=== PATIENT | male | born 1995 ===

== ENCOUNTER 2022-11-14 20:08 | Emergency (ER) | payer SELFPAY ==
--- NOTE | ~2022-11-14 | XR_ITS ---
EXAMINATION: XR CHEST 2 VIEWS CLINICAL INFORMATION: Shortness of breath and wheezing. COMPARISON: None. TECHNIQUE: Frontal and lateral views of the chest were obtained. FINDINGS: The heart, great vessels, pulmonary vasculature and mediastinum are normal. The lungs show no focal infiltrate, effusion or pneumothorax. There is a full inspiratory effort. There is no acute osseous abnormality. XR/XR chest 2V IMPRESSION: No active cardiopulmonary disease.
[2022-11-14 20:20] VITALS: BP 139/96; PULSE 125; RESP 18; TEMP 37.1; O2SAT 94; BMI 28.1
--- NOTE | 2022-11-14 20:20 | ED_ITS ---
HPI - SOB/Dyspnea General Chief Complaint: Dyspnea <MANUEL Henderson - Last Filed: 11/14/22 20:24> Stated Complaint: trouble breathing, wheezing <MANUEL Henderson - Last Filed: 11/14/22 20:24> Time Seen by Provider: 11/14/22 23:14 <MANUEL Henderson - Last Filed: 11/14/22 20:24> Source: patient, RN notes reviewed and old records reviewed <Hudson Cano - Last Filed: 11/14/22 23:25> Mode of arrival: ambulatory <Hudson Cano - Last Filed: 11/14/22 23:25> Limitations: no limitations <Hudson Cano - Last Filed: 11/14/22 23:25> History of Present Illness HPI Narrative: 27-year-old male with no significant past medical history presents for evaluation of shortness of breath. patient reports since moving to the area from [place] every spring he has allergies with congestion and sometimes shortness of breath he denies any known history of asthma but he reports he has been wheezing for the last week denies any fevers, chills he has not been taking any medications to help alleviate his symptoms no other complaints or concerns at this time <Hudson Cano - Last Filed: 11/14/22 23:25> Related Data Home Medications: Previous Rx's Medication Instructions Recorded albuterol sulfate 90 mcg/actuation 2 puff inhalation Q4-6H PRN 11/14/22 aerosol inhaler shortness of breath or wheezing #6.7 grams fexofenadine-pseudoephedrine ER 1 tab PO QAM PRN allergy symptoms 11/14/22 180 mg-240 mg tablet,ext.release #20 tabs 24 hr (Irma-D 24 Hour) prednisone 20 mg tablet 40 mg PO DAILY #10 tabs 11/14/22 <MANUEL Henderson - Last Filed: 11/14/22 20:24> Allergies/Adverse Reactions: Allergies Allergy/AdvReac Type Severity Reaction Status Date / Time No Known Allergies Allergy Verified 11/14/22 20:20 <MANUEL Henderson - Last Filed: 11/14/22 20:24> Review of Systems Constitutional: Constitutional: Denies chills and Denies fever(s) <Hudson Angely - Last Filed: 11/14/22 23:25> Eyes: Eyes: Denies blurry vision and Reports itchy eyes <Hudson O'Henderson - Last Filed: 11/14/22 23:25> ENT: Reports nasal congestion, Reports nasal discharge, Reports sinus pressure and Denies sore throat <Hudson O - Last Filed: 11/14/22 23:25> Cardiovascular: Cardiovascular: Denies chest pain and Reports dyspnea <Hudson Juan - Last Filed: 11/14/22 23:25> Respiratory: Respiratory: Reports cough, Reports dyspnea and Reports wheezing <Hudson O - Last Filed: 11/14/22 23:25> Gastrointestinal: Gastrointestinal: Denies abdominal pain, Denies nausea and Denies vomiting <Hudson O - Last Filed: 11/14/22 23:25> Allergic/Immunologic: Allergic/Immunologic: Reports itchy eyes and Reports wheezing <Hudson O'Henderson - Last Filed: 11/14/22 23:25> [facility] Social History Social History: Social History Advance Directives: No Advance Directives Information Provided: No <MANUEL Henderson - Last Filed: 11/14/22 20:24> Physical Exam Vital Signs: Vital Signs: Last Vital Signs Temp 98.8 F 11/14/22 20:20 Pulse 124 H 11/14/22 22:12 Resp 11/14/22 21:45 BP 139/96 H 11/14/22 20:20 Pulse Ox 96 11/14/22 22:12 O2 Del Method Room Air 11/14/22 22:12 BMI result Body Mass Index 28.1 <MANUEL Henderson - Last Filed: 11/14/22 20:24> Vital Signs: Last Vital Signs Temp 98.8 F 11/14/22 20:20 Pulse 124 H 11/14/22 22:12 Resp 11/14/22 21:45 BP 139/96 H 11/14/22 20:20 Pulse Ox 96 11/14/22 22:12 O2 Del Method Room Air 11/14/22 22:12 BMI result Body Mass Index 28.1 <Hudson Cano - Last Filed: 11/14/22 23:25> Const: General: healthy appearing, comfortable, no acute distress, alert and awake <Hudson OHenderson - Last Filed: 11/14/22 23:25> Nutritional Appearance: well nourished <Hudson Last Filed: 11/14/22 23:25> Orientation/consciousness: patient oriented x3 <Hudson O Last Filed: 11/14/22 23:25> HEENT: Head: Yes normocephalic and Yes atraumatic < - Last Filed: 11/14/22 23:25> Throat: Yes posterior oropharynx normal < - Last Filed: 11/14/22 23:25> Eyes: Eyelids: Yes eyelids normal < Last Filed: 11/14/22 23:25> Conjunctivae: conjunctivae normal <Hudson - Last Filed: 11/14/22 23:25> Sclerae: sclerae normal < - Last Filed: 11/14/22 23:25> Corneas: corneas normal < - Last Filed: 11/14/22 23:25> Pupils: Equal, round and reactive pupils present <Hudson - Last Filed: 11/14/22 23:25> EOM: EOMs intact bilaterally <Hudson Last Filed: 11/14/22 23:25> Resp: Effort & Inspection: normal respiratory effort, able to speak in complete sentences, no audible wheezes and not labored <Hudson O - Last Filed: 11/14/22 23:25> Auscultation: clear to auscultation bilaterally < Last File d: 11/14/22 23:25> Cardio: Rate: regular rate < - Last Filed: 11/14/22 23:25> Rhythm: regular rhythm <Hudson Last Filed: 11/14/22 23:25> Skin: General skin exam: no rashes or lesions noted and elasticity normal < - Last Filed: 05/10/23 23:25> Neuro: General: patient oriented x3 <Hudson Cano - Last Filed: 11/14/22 23:25> Cranial nerves: Yes Equal, round and reactive pupils present and Yes Bilaterally intact EOM present <Hudson Cano - Last Filed: 11/14/22 23:25> Cognition (Neuro): normal cognition <Hudson Cano - Last Filed: 11/14/22 23:25> Course Course Course Narrative: RME - 27 yo male with history of seasonal allergies presents to the ER for evaluation of SOB and wheezing for the last 1 week. Denies history of known asthma but states he has these symptoms every Spring. Speaking in complete sentences in triage, no resp distress. SPO2 93% with diffuse expiratory/inspiratory wheezing on exam. Plan: CXR, albuterol, prednisone <MANUEL Henderson - Last Filed: 11/14/22 20:24> Medications Administered Discontinued Medications Generic Name Dose Route Start Last Admin Trade Name Freq PRN Reason Stop Dose Admin Albuterol Sulfate 5 mg 11/14/22 20:22 11/14/22 21:43 Albuterol Sulfate (0.083%) 2.5 Mg/3 Ml Vial.Neb INHALE 11/14/22 20:23 5 mg ONCE ONE Administration Prednisone 50 mg 11/14/22 20:22 11/14/22 21:38 Prednisone 10 Mg Tablet PO 11/14/22 20:23 50 mg ONCE ONE Administration <MANUEL Henderson - Last Filed: 11/14/22 20:24> Medications Administered Discontinued Medications Generic Name Dose Route Start Last Admin Trade Name Freq PRN Reason Stop Dose Admin Albuterol Sulfate 5 mg 11/14/22 20:22 11/14/22 21:43 Albuterol Sulfate (0.083%) 2.5 Mg/3 Ml Vial.Neb INHALE 11/14/22 20:23 5 mg ONCE ONE Administration Prednisone 50 mg 11/14/22 20:22 11/14/22 21:38 Prednisone 10 Mg Tablet PO 11/14/22 20:23 50 mg ONCE ONE Administration <uHdson Cano - Last Filed: 11/14/22 23:25> Medical Decision Making Medical Decision Making MDM Narrative: clinically the patient likely has an allergy induced asthma. He was given a breathing treatment and prednisone when seen by the triage provider. At time my evaluation he is resting comfortably with lung sounds clear to auscultation. Will discharge the patient with allergy medication, prednisone and albuterol <Hudson Cano - Last Filed: 11/14/22 23:25> Differential Diagnosis seasonal allergies Asthma Allergy induced asthma Viral syndrome Bronchitis Sinusitis <Hudson Cano - Last Filed: 11/14/22 23:25> Independent Interpretation I performed an independent interpretation of an: Plain X-Ray ( no focal infiltrates) <Hudson Cano - Last Filed: 11/14/22 23:25> Discharge Plan Discharge Clinical Impression: Allergy-induced asthma <MANUEL Henderson - Last Filed: 11/14/22 20:24> Patient Disposition: Home, Self-Care <MANUEL Henderson - Last Filed: 11/14/22 20:24> Instructions: Asthma (ED) <MANUEL Henderson - Last Filed: 11/14/22 20:24> Additional Instructions: you likely have asthma related to seasonal allergies. you should start taking a daily allergy medication in the springtime when you experience your symptoms take prednisone 40 mg daily for the next 5 days use the albuterol inhaler for chest tightness and wheezing/shortness of breath <MANUEL Henderson - Last Filed: 11/14/22 20:24> Prescriptions: New prednisone 20 mg tablet 40 mg PO DAILY Qty: 10 0RF albuterol sulfate 90 mcg/actuation HFA aerosol inhaler 2 puff inhalation Q4-6H PRN (Reason: shortness of breath or wheezing) Qty: 6.7 0RF fexofenadine-pseudoephedrine [Irma-D 24 Hour] 180-240 mg tablet extended release 24 hr 1 tab PO QAM PRN (Reason: allergy symptoms) Qty: 20 0RF <MANUEL Henderson - Last Filed: 11/14/22 20:24>
[2022-11-14] MEDS: predniSONE 10 MG TABLET 50 MG PO (21:38)
[2022-11-14] MEDS: Albuterol Sulfate (0.083%) 2.5 MG/3 ML VIAL.NEB 5 MG INHALE (21:43)
[2022-11-14 21:45] VITALS: PULSE 87; RESP 20; O2SAT 98
[2022-11-14 22:12] VITALS: PULSE 124; O2SAT 96
--- NOTE | 2022-11-14 22:58 | PC.NURSE ---
pt medicated per MAR- awaiting ED provider
--- NOTE | 2022-11-14 23:33 | PC.NURSE ---
This RN took over care at 11:11pm, pt a&o, no sign of respiratory distress , pt able to speak in full sentences, Reviewed discharge instruction with pt, pt verbalized understanding.
== END 2022-11-14 23:35 | disposition home or self-care (01) ==
PROVIDERS: Emergency Provider Internal Medicine
DX: J45.909 Unspecified asthma, uncomplicated (principal)
CPT/HCPCS: 71046; 94640; 99284

== ENCOUNTER 2023-04-24 18:09 | Inpatient (IN) | payer MEDICAID, OTHER, SELFPAY ==
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
[2023-04-24] MEDS: Ondansetron ODT 4 MG TAB.RAPDIS TRANSLINGU (18:38)
[2023-04-24 18:39] VITALS: BP 137/80; PULSE 120; RESP 18; TEMP 36.1; O2SAT 95; BMI 30.9
[2023-04-24] MEDS: OLANZapine ODT 10 MG TAB.RAPDIS TRANSLINGU (18:39)
[2023-04-24] MEDS: LORazepam 1 MG TABLET 2 MG PO (18:39)
[2023-04-24 18:46] LABS: Appearance Urine Clear; Color Urine Dark Yellow; Glucose Urine UA Negative (Negative); Leukocyte Esterase Urine Small (1+) (Negative); Nitrite Urine Negative (Negative); Specific Gravity - Urine >= 1.030 (1.005-1.025); UMIC TRIGGER UACC YES; Urine Blood Negative (Negative); Urine Ketones 80 mg/dL (Negative); Urine Protein 100 (2+) mg/dL (Neg-Trace)
[2023-04-24 18:51] LABS: Amphetamine Screen Urine Not Detected (Not Detect); Barbiturates, Urine Not Detected (Not Detect); Benzodiazepines Screen Urine Not Detected (Not Detect); Cannabinoid Screen Urine POSITIVE (Not Detect); Cocaine Screen Urine Not Detected (Not Detect); Fentanyl, urine Not Detected (Not Detect); Opiate Screen Urine Not Detected (Not Detect); Phencyclidine Screen Urine Not Detected (Not Detect)
[2023-04-24 18:55] LABS: Bacteria Urine None Seen (None Seen); RBC Urine 0-2 /HPF (0-2); UACC Culture Trigger YES
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
[2023-04-24 19:23] LABS: MANUAL DIFF FLAG NO
[2023-04-24 19:30] LABS: Basophils Percent Auto 0.4 % (0-2); Eosinophils Absolute Auto 0.1 X10*3/uL (0.0-0.4); Eosinophils Percent Auto 0.8 % (0-4); Hematocrit 50.1 % (42.0-52.0); Hemoglobin 17.5 g/dl (14.0-18.0); Imm Gran Abs Auto 0.03 X10*3/uL (0.00-0.03); Imm Gran Pct Auto 0.4 % (0.0-0.4); Lymphocytes Absolute Auto 1.6 X10*3/uL (1.2-4.9); Lymphocytes Percent Auto 20.2 % (20-40); Mean Corpuscular HGB Conc 34.9 g/dl (31.0-36.0); Mean Corpuscular Hemoglobin 28.6 pg (27.0-33.0); Mean Platelet Volume 9.1 fL (9.4-12.4); Monocytes Absolute Auto 0.4 X10*3/uL (0.1-1.2); Monocytes Percent Auto 4.7 % (2-11); Neutrophils Absolute Auto 5.8 x10*3/uL (2.0-8.3); Neutrophils Percent Auto 73.5 % (45-73); Platelet Count 359 X10*3/uL (160-400); Red Blood Count 6.11 X10*6/uL (4.60-5.80); Red Cell Distribution Width 14.2 % (11.0-16.0); White Blood Count 7.8 X10*3/uL (4.8-10.8)
[2023-04-24 19:40] LABS: Anion Gap 22 (12-20); Blood Urea Nitrogen 16 mg/dL (9-16); Calcium 10.3 mg/dL (8.4-10.2); Carbon Dioxide 17 mmol/L (22-29); Chloride 104 mmol/L (96-108); Creatinine Clr Calc Pharmacy 71.9; Estimated Glomerular Filt Rate 57; Ethanol < 10 mg/dL; Glucose Random 151 mg/dL (60-115); Potassium 3.9 mmol/L (3.3-5.1); Sodium 139 mmol/L (135-145)
[2023-04-24 20:19] LABS: COVID-19 Test Positive (Negative); IDNOW Serial# 9DB6401D
--- NOTE | 2023-04-24 22:26 | PC.NURSE ---
Patient is in bed appears sleeping, no distress observed/reported, behavior non concerning, coherent, patient was assessed in the community with disposition section 12 inpatient bed search, labs completed/resulted/reviewed by provider, patient is covid +/precaution is in place, patient made aware, med rec completed/currently not on any medication, will continue to monitor
[2023-04-25 12:56] VITALS: RESP 18
--- NOTE | 2023-04-25 16:27 | PHA.MEDREC ---
Pharmacy Consult ? Medication Reconciliation Pharmacy has reviewed the medication reconciliation completed by nursing.
[2023-04-25 17:10] VITALS: RESP 18
--- NOTE | 2023-04-25 18:37 | PC.NURSE ---
Ronn has been in his bed resting most of the shift. Covid + so he is asked to wear a mask when coming out on the unit which he has been doing. Visit with mother and aunt which appeared to go well. Appetite fair. Mother brought sealed snacks form him from home. No medications req/rec. No scheduled medications. Denies SI/HI/AH. No behavioral concerns noted on this shift.
[2023-04-25 20:08] VITALS: BP 127/78; PULSE 120; RESP 20; TEMP 37.3; O2SAT 95
--- NOTE | 2023-04-26 04:02 | PC.NURSE ---
Patient slept through the evening and night,, no distress observed/reported, behavior non concerning, coherent, patient was assessed in the community with disposition section 12 inpatient bed search, no update on bed search, labs completed/resulted/reviewed by provider, patient is covid +/precaution is in place/patient follows precaution protocol well, med rec completed/currently only on inhaler, will continue to monitor
[2023-04-26 06:51] VITALS: BP 109/73; PULSE 103; RESP 16; TEMP 36.4; O2SAT 98
--- NOTE | 2023-04-26 07:11 | PC.NURSE ---
patient appears to remain asleep at present respirations are even and unlabored patient appears in no distress
[2023-04-26 17:25] VITALS: BP 136/94; PULSE 111; RESP 18; TEMP 36.6; O2SAT 96
[2023-04-26 17:51] VITALS: BP 146/90; PULSE 116; TEMP 36.4
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
[2023-04-27 08:17] LABS: Estimated Average Glucose 88 mg/dL; Hemoglobin A1c % 4.7 % (<6.0)
[2023-04-27 08:30] LABS: Alanine Aminotransferase 43 U/L (0-40); Albumin Level 4.3 g/dL (3.5-5.0); Alkaline Phosphatase 65 U/L (39-117); Anion Gap 15 (12-20); Aspartate Amino Transferase 28 U/L (5-37); Blood Urea Nitrogen 14 mg/dL (9-16); Calcium 9.9 mg/dL (8.4-10.2); Carbon Dioxide 25 mmol/L (22-29); Chloride 105 mmol/L (96-108); Cholesterol 187 mg/dL (<200); Creatinine Clr Calc Pharmacy 66.1; Estimated Glomerular Filt Rate 52; Glucose Fasting 93 mg/dL (60-99); HDL Cholesterol 31 mg/dL (>40); LDL Cholesterol Calculated 119 mg/dL (<100); Magnesium 2.3 mg/dL (1.6-2.6); Potassium 3.6 mmol/L (3.3-5.1); Sodium 141 mmol/L (135-145); Total Protein 7.7 g/dL (6.5-8.0); Triglycerides 187 mg/dL (<150)
[2023-04-27 08:42] LABS: Free T4 (Free Thyroxine) 1.15 ng/dL (0.71-1.85); Thyroid Stimulating Hormone 1.04 uIU/mL (0.32-4.0)
[2023-04-27 08:53] LABS: Folate 8.4 ng/mL (> or = 4.0); Vitamin B12 565 pg/mL (200-900)
[2023-04-27 09:07] VITALS: BP 134/79; PULSE 95; RESP 16; TEMP 36.6; O2SAT 97
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
[2023-04-27 17:01] VITALS: BP 160/85; PULSE 102; RESP 18; TEMP 36.9; O2SAT 97
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
[2023-04-28 08:51] VITALS: BP 131/66; PULSE 92; RESP 18; TEMP 37.3; O2SAT 96
[2023-04-28] MEDS: OLANZapine ODT 10 MG TAB.RAPDIS TRANSLINGU (08:52)
[2023-04-28 17:13] VITALS: BP 123/59; PULSE 99; RESP 18; TEMP 36.6; O2SAT 95
[2023-04-29 08:33] VITALS: BP 128/64; PULSE 84; RESP 16; TEMP 36.7; O2SAT 98
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
[2023-04-29 18:00] VITALS: BP 145/88; PULSE 96; RESP 16; TEMP 36.8; O2SAT 97
[2023-04-29] MEDS: OLANZapine ODT 10 MG TAB.RAPDIS 5 MG TRANSLINGU ×2 (18:02→20:03)
[2023-04-30 08:30] VITALS: BP 130/66; PULSE 89; RESP 16; TEMP 36.6; O2SAT 93
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
[2023-04-30 12:31] LABS: Anion Gap 15 (12-20); Blood Urea Nitrogen 12 mg/dL (9-16); Carbon Dioxide 27 mmol/L (22-29); Chloride 107 mmol/L (96-108); Creatinine Clr Calc Pharmacy 91.3; Estimated Glomerular Filt Rate > 60; Glucose Random 97 mg/dL (60-115); Sodium 145 mmol/L (135-145)
[2023-04-30 16:33] VITALS: BP 142/71; PULSE 103; TEMP 36.2; O2SAT 97
[2023-04-30] MEDS: OLANZapine ODT 10 MG TAB.RAPDIS 5 MG TRANSLINGU (20:15)
[2023-05-01 08:28] VITALS: BP 119/73; PULSE 93; RESP 16; TEMP 36.8; O2SAT 97
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
[2023-05-01] MEDS: Ziprasidone 20 MG CAPSULE PO (17:35)
[2023-05-01 18:00] VITALS: BP 140/67; PULSE 109; TEMP 35.8; O2SAT 97
[2023-05-01] MEDS: OLANZapine ODT 10 MG TAB.RAPDIS 5 MG TRANSLINGU (19:34)
[2023-05-02] MEDS: Ziprasidone 20 MG CAPSULE PO (08:20)
[2023-05-02 09:09] VITALS: BP 132/64; PULSE 112; RESP 16; TEMP 36.6; O2SAT 96
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
[2023-05-02] MEDS: buPROPion HCL 75 MG TABLET PO (11:37)
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
[2023-05-02 19:05] VITALS: BP 138/64; PULSE 118; RESP 18; TEMP 36.5
[2023-05-02] MEDS: OLANZapine 5 MG TABLET PO (20:23)
[2023-05-03 03:40] LABS: Syphilis Screen Nonreactive (Nonreactive)
[2023-05-03 03:51] LABS: Hepatitis A Antibody IgG REACTIVE (Nonreactive)
[2023-05-03 03:53] LABS: HBS Num1 0.88 mIU/mL (0-7.99); HBc Num1 0.05 S/CO (0.00-0.79); HBsAGNum1 0.42 S/CO (0.00-0.99); Hepatitis B Core Antibody Nonreactive (Nonreactive); Hepatitis B Surface Antigen Negative (Negative); ~HepC Num1 0.06 S/CO (0.00-0.79); ~Hepatitis B Surface Antibody NONREACTIVE (Nonreactive); ~Hepatitis C Antibody Nonreactive (Nonreactive)
[2023-05-03] MEDS: buPROPion HCl XL 150 MG TAB.ER.24H PO (08:15)
[2023-05-03 08:18] VITALS: BP 133/72; PULSE 108; RESP 18; TEMP 36.7; O2SAT 98
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
[2023-05-03 18:39] LABS: Toxoplasma IgG Antibody <7.20 IU/mL; Toxoplasma IgM Antibody <8.00 AU/mL
[2023-05-03 21:39] LABS: Cytomegalovirus Ab IgG >10.00 U/mL; Cytomegalovirus Ab IgM <30.00 AU/mL
[2023-05-04 13:18] LABS: HIV RNA PCR Qn Copies 153000 copies/mL (NOT DETECTED); HIV RNA PCR Qn Log Copies 5.18 (NOT DETECTED)
[2023-05-04 22:34] LABS: TS Negative Control Passed; TS Panel A 0; TS Panel B 0; TS Positive Control Passed; TSpotTB Negative (Negative)
[2023-05-05 09:48] LABS: HCV Log PCR <1.18 NOT DETECTED Log IU/mL (NOT DETECTED); HepC Viral Load <15 NOT DETECTED IU/mL (NOT DETECTED)
[2023-05-06 08:03] LABS: Absolute CD3 Count 2059 cells/uL (840-3060); Absolute CD4 Count 630 cells/uL (490-1740); Absolute CD8 Count 1434 cells/uL (180-1170); Absolute Lymphocytes 2304 cells/uL (850-3900); CD4 CD8 Ratio 0.44 (0.86-5.00); Percent CD3 Cells 89 % (57-85); Percent CD4 Cells 27 % (30-61); Percent CD8 Cells 62 % (12-42)
[2023-05-07 21:54] LABS: Glucose-6-Phosphate Dehydrogen 13.2 U/g Hgb (7.0-20.5)
[2023-05-13 18:44] LABS: HIV Genotype DETECTED
[2023-05-14 22:54] LABS: Date Viral Load Collected NG; Dolutegravir Resistance NOT PREDICTED; HIV-1 Bictegravir Resistance NOT PREDICTED; HIV-1 Cabotegravir Resistance NOT PREDICTED; HIV-1 Elvitegravir Resistance NOT PREDICTED; Raltegravir Resistance NOT PREDICTED; Value of Last HIV Viral Load NG copies/mL
[2023-05-15 11:04] LABS: HIV 2 Antibody NEGATIVE
[2023-05-15 11:05] LABS: HIV 1 Antibody POSITIVE (Abnormal)
== END 2023-05-03 11:22 | disposition home or self-care (01) | DRG 751 ==
LOC: HO.ED 04-26 08:42 → HO.PM5 04-26 16:52
PROVIDERS: Emergency Medicine; Internal Medicine; Admitting Provider Clinical Nurse Specialist Psychiatric/Mental Health, Adult; Emergency Provider Emergency Medicine Emergency Medical Services; Visit Provider Psychiatry & Neurology Psychiatry
DX: F33.3 Major depressive disorder, recurrent, severe with psychotic symptoms (principal); U07.1 COVID-19; Z21 Asymptomatic human immunodeficiency virus [HIV] infection status; Z79.899 Other long term (current) drug therapy
CPT/HCPCS: 36415; 80048; 80053; 80061; 80307; 81001; 82607; 82746; 82955; 83036; 83735; 84439; 84443; 85025; 86359; 86360; 86403; 86481; 86644; 86645; 86701; 86702; 86704; 86706; 86708; 86777; 86778; 86780; 86803; 87086; 87340; 87389; 87522; 87536; 87635; 87900; 87901; 87906; 99285

== ENCOUNTER → 2023-04-26 14:55 | Outpatient (BNV) | payer MEDICAID, SELFPAY | PROVIDERS: Admitting Provider Clinical Nurse Specialist Psychiatric/Mental Health, Adult; Emergency Provider Emergency Medicine Emergency Medical Services; Visit Provider Psychiatry & Neurology Psychiatry | DX: F33.3 Major depressive disorder, recurrent, severe with psychotic symptoms (principal); B20 Human immunodeficiency virus [HIV] disease | CPT/HCPCS: 90792; 99231; 99232; 99238 ==

== ENCOUNTER → 2023-04-26 14:55 | Outpatient (BNV) | payer MEDICAID, SELFPAY | PROVIDERS: Admitting Provider Clinical Nurse Specialist Psychiatric/Mental Health, Adult; Emergency Provider Emergency Medicine Emergency Medical Services; Visit Provider Internal Medicine | DX: B20 Human immunodeficiency virus [HIV] disease (principal) | CPT/HCPCS: 99222 ==

== ENCOUNTER 2023-05-16 10:21 | Outpatient (REF) | payer MEDICAID, SELFPAY ==
[2023-05-16 11:11] LABS: MANUAL DIFF FLAG NO
[2023-05-16 11:26] LABS: Basophils Absolute Auto 0.1 X10*3/uL (0.0-0.2); Basophils Percent Auto 0.9 % (0-2); Eosinophils Absolute Auto 0.2 X10*3/uL (0.0-0.4); Eosinophils Percent Auto 3.7 % (0-4); Hematocrit 42.7 % (42.0-52.0); Hemoglobin 14.4 g/dl (14.0-18.0); Imm Gran Abs Auto 0.14 X10*3/uL (0.00-0.03); Imm Gran Pct Auto 2.1 % (0.0-0.4); Lymphocytes Absolute Auto 2.3 X10*3/uL (1.2-4.9); Lymphocytes Percent Auto 35.3 % (20-40); Mean Corpuscular HGB Conc 33.7 g/dl (31.0-36.0); Mean Corpuscular Hemoglobin 29.3 pg (27.0-33.0); Mean Platelet Volume 9.6 fL (9.4-12.4); Monocytes Absolute Auto 0.7 X10*3/uL (0.1-1.2); Monocytes Percent Auto 10.8 % (2-11); Neutrophils Absolute Auto 3.1 x10*3/uL (2.0-8.3); Neutrophils Percent Auto 47.2 % (45-73); Platelet Count 324 X10*3/uL (160-400); Red Blood Count 4.91 X10*6/uL (4.60-5.80); Red Cell Distribution Width 15.1 % (11.0-16.0); White Blood Count 6.6 X10*3/uL (4.8-10.8)
[2023-05-16 12:00] LABS: Alanine Aminotransferase 80 U/L (0-40); Albumin Level 4.2 g/dL (3.5-5.0); Alkaline Phosphatase 76 U/L (39-117); Anion Gap 14 (12-20); Aspartate Amino Transferase 30 U/L (5-37); Bilirubin Total 0.6 mg/dL (0.0-1.0); Blood Urea Nitrogen 7 mg/dL (9-16); Calcium 9.5 mg/dL (8.4-10.2); Carbon Dioxide 26 mmol/L (22-29); Chloride 106 mmol/L (96-108); Estimated Glomerular Filt Rate > 60; Glucose Random 85 mg/dL (60-115); Sodium 142 mmol/L (135-145); Total Protein 7.7 g/dL (6.5-8.0)
[2023-05-17 08:26] LABS: Hepatitis A Antibody IgG REACTIVE (Nonreactive); ~Hepatitis A Antibody IgG 1.05 S/CO (0.00-0.99)
[2023-05-17 08:31] LABS: HBS Num1 1.01 mIU/mL (0-7.99); HBc Num1 0.05 S/CO (0.00-0.79); HBsAGNum1 0.32 S/CO (0.00-0.99); Hepatitis B Core Antibody Nonreactive (Nonreactive); Hepatitis B Surface Antigen Negative (Negative); ~HepC Num1 0.04 S/CO (0.00-0.79); ~Hepatitis B Surface Antibody NONREACTIVE (Nonreactive); ~Hepatitis C Antibody Nonreactive (Nonreactive)
[2023-05-17 11:28] LABS: RPR Rapid Plasma Reagin NON-REACTIVE (NON-REACTIVE)
[2023-05-17 13:33] LABS: Absolute CD3 Count 2085 cells/uL (840-3060); Absolute CD4 Count 620 cells/uL (490-1740); Absolute CD8 Count 1445 cells/uL (180-1170); Absolute Lymphocytes 2314 cells/uL (850-3900); CD4 CD8 Ratio 0.43 (0.86-5.00); Percent CD3 Cells 90 % (57-85); Percent CD4 Cells 27 % (30-61); Percent CD8 Cells 62 % (12-42)
[2023-05-20 17:23] LABS: HIV RNA PCR Qn Copies 140000 Copies/mL; HIV RNA PCR Qn Log Copies 5.15 Log cps/mL
[2023-06-03 08:24] LABS: Value of Last HIV Viral Load 140000
== END 2023-05-16 10:22 | disposition home or self-care (01) ==
LOC: HO.HHCL 10:21
PROVIDERS: Visit Provider Internal Medicine
DX: B20 Human immunodeficiency virus [HIV] disease (principal)
CPT/HCPCS: 36415; 80053; 85025; 86359; 86360; 86592; 86704; 86706; 86708; 86803; 87340; 87536; 87900; 87901; 87906

== ENCOUNTER 2024-01-31 10:13 | Outpatient (REF) | payer OTHER, SELFPAY ==
[2024-01-31 11:38] LABS: MANUAL DIFF FLAG NO
[2024-01-31 11:50] LABS: Basophils Absolute Auto 0.1 X10*3/uL (0.0-0.2); Basophils Percent Auto 0.8 % (0-2); Eosinophils Absolute Auto 0.2 X10*3/uL (0.0-0.4); Eosinophils Percent Auto 2.5 % (0-4); Hemoglobin 15.1 g/dl (14.0-18.0); Imm Gran Abs Auto 0.04 X10*3/uL (0.00-0.03); Imm Gran Pct Auto 0.6 % (0.0-0.4); Lymphocytes Absolute Auto 2.8 X10*3/uL (1.2-4.9); Lymphocytes Percent Auto 42.3 % (20-40); Mean Corpuscular HGB Conc 33.6 g/dl (31.0-36.0); Mean Corpuscular Hemoglobin 29.3 pg (27.0-33.0); Mean Corpuscular Volume 87.2 fL (80.0-98.0); Mean Platelet Volume 9.5 fL (9.4-12.4); Monocytes Absolute Auto 0.6 X10*3/uL (0.1-1.2); Monocytes Percent Auto 8.6 % (2-11); Neutrophils Percent Auto 45.2 % (45-73); Platelet Count 382 X10*3/uL (160-400); Red Blood Count 5.16 X10*6/uL (4.60-5.80); Red Cell Distribution Width 14.9 % (11.0-16.0); White Blood Count 6.5 X10*3/uL (4.8-10.8)
[2024-01-31 11:56] LABS: Alanine Aminotransferase 43 U/L (0-40); Albumin Level 4.4 g/dL (3.5-5.0); Alkaline Phosphatase 71 U/L (39-117); Anion Gap 12 (12-20); Aspartate Amino Transferase 24 U/L (5-37); Bilirubin Total 0.8 mg/dL (0.0-1.0); Blood Urea Nitrogen 10 mg/dL (9-16); Calcium 9.3 mg/dL (8.4-10.2); Carbon Dioxide 26 mmol/L (22-29); Chloride 108 mmol/L (96-108); Estimated Glomerular Filt Rate > 60; Glucose Random 88 mg/dL (60-115); Sodium 142 mmol/L (135-145); Total Protein 7.6 g/dL (6.5-8.0)
[2024-02-04 14:48] LABS: HIV RNA PCR Qn Copies 58 copies/mL (NOT DETECTED); HIV RNA PCR Qn Log Copies 1.76 (NOT DETECTED)
[2024-02-04 18:38] LABS: Absolute CD3 Count 2708 cells/uL (840-3060); Absolute CD4 Count 832 cells/uL (490-1740); Absolute CD8 Count 1861 cells/uL (180-1170); Absolute Lymphocytes 2959 cells/uL (850-3900); CD4 CD8 Ratio 0.45 (0.86-5.00); Percent CD3 Cells 91 % (57-85); Percent CD4 Cells 28 % (30-61); Percent CD8 Cells 63 % (12-42)
== END 2024-01-31 10:14 | disposition home or self-care (01) ==
LOC: HO.HHCL 10:13
PROVIDERS: Visit Provider Internal Medicine
DX: Z21 Asymptomatic human immunodeficiency virus [HIV] infection status (principal)
CPT/HCPCS: 36415; 80053; 85025; 86359; 86360; 87536

== ENCOUNTER 2024-02-18 07:52 | Outpatient (AMB) | payer OTHER, SELFPAY ==
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
[2024-02-18 08:03] VITALS: BP 122/74; PULSE 98; O2SAT 99; BMI 30.9
== END 2024-02-18 08:37 | disposition home or self-care (01) ==
DX: Z00.00 Encounter for general adult medical examination without abnormal findings (principal); F33.3 Major depressive disorder, recurrent, severe with psychotic symptoms; B20 Human immunodeficiency virus [HIV] disease; F41.9 Anxiety disorder, unspecified; J45.998 Other asthma; R79.89 Other specified abnormal findings of blood chemistry
CPT/HCPCS: 99385

== ENCOUNTER 2024-03-05 09:01 | Outpatient (REF) | payer OTHER, SELFPAY ==
--- NOTE | ~2024-03-05 | US_ITS ---
EXAMINATION: US ABDOMEN COMPLETE CLINICAL INFORMATION: Other specified abnormal findings of blood chemistry. Elevated LFTs. COMPARISON: None available. TECHNIQUE: Real-time imaging of the abdominal viscera. Limited visualization due to bowel gas. FINDINGS: PANCREAS: Limited visualization of pancreatic tail and head. Imaged portion of pancreatic body is unremarkable. ABDOMINAL AORTA: Limited visualization. Imaged portions of the mid to distal abdominal aorta are within normal limits in caliber. INFERIOR VENA CAVA: Visualized portions are normal. LIVER: Increased hepatic parenchymal heterogeneity and echogenicity could be associated with hepatocellular disease/hepatic steatosis and substantially limits visualization. Correlation with liver function tests and clinical exam recommended to determine further management. 0.8 x 1.1 x 0.9 cm echogenic lesion in the left hepatic lobe of uncertain etiology, although differential considerations include hemangioma, focal sparing within a fatty liver or other mass. GALLBLADDER: No gallstones. No gallbladder wall thickening. COMMON BILE DUCT: Normal in caliber measuring 0.33 cm in diameter. RIGHT KIDNEY: No hydronephrosis. No renal calculi. Limited visualization. The kidney measures 10.0 cm in maximum dimension. LEFT KIDNEY: No hydronephrosis. No renal calculi. Limited visualization. The kidney measures 11.1 cm in maximum dimension. SPLEEN: Normal. The spleen measures 11.3 cm in maximum dimension. FREE FLUID: None. US/US abdomen complete IMPRESSION: 1. Increased hepatic parenchymal heterogeneity and echogenicity could be associated with hepatocellular disease/hepatic steatosis and substantially limits visualization. Correlation with liver function tests and clinical exam recommended to determine further management. 2. A 1.1 cm echogenic lesion in the left hepatic lobe of uncertain etiology, although differential considerations include hemangioma, focal sparing within fatty liver or other mass. Electronically signed by: Radha Hanley MD 03/10/2024 02:44 PM EDT
[2024-03-05 13:39] LABS: Alanine Aminotransferase 46 U/L (0-40); Albumin Level 4.5 g/dL (3.5-5.0); Alkaline Phosphatase 70 U/L (39-117); Aspartate Amino Transferase 22 U/L (5-37); Bilirubin Direct 0.2 mg/dL (0.0-0.5); Bilirubin Total 0.7 mg/dL (0.0-1.0); Cholesterol 225 mg/dL (<200); HDL Cholesterol 45 mg/dL (>40); LDL Cholesterol Calculated 135 mg/dL (<100); Total Protein 7.8 g/dL (6.5-8.0); Triglycerides 227 mg/dL (<150)
== END 2024-03-05 09:02 | disposition home or self-care (01) ==
LOC: HO.HMGCX 09:01
DX: R79.89 Other specified abnormal findings of blood chemistry (principal); Z00.00 Encounter for general adult medical examination without abnormal findings
CPT/HCPCS: 36415; 76700; 80061; 80076

== ENCOUNTER 2024-10-02 11:35 | Outpatient (REF) | payer MEDICAID, SELFPAY ==
[2024-10-02 14:15] LABS: MANUAL DIFF FLAG NO
[2024-10-02 14:44] LABS: Basophils Absolute Auto 0.1 X10*3/uL (0.0-0.2); Basophils Percent Auto 0.8 % (0-2); Eosinophils Absolute Auto 0.2 X10*3/uL (0.0-0.4); Eosinophils Percent Auto 2.6 % (0-4); Hematocrit 45.9 % (42.0-52.0); Hemoglobin 15.6 g/dl (14.0-18.0); Imm Gran Abs Auto 0.03 X10*3/uL (0.00-0.03); Imm Gran Pct Auto 0.5 % (0.0-0.4); Lymphocytes Absolute Auto 2.4 X10*3/uL (1.2-4.9); Lymphocytes Percent Auto 38.6 % (20-40); Mean Corpuscular Hemoglobin 28.8 pg (27.0-33.0); Mean Corpuscular Volume 84.7 fL (80.0-98.0); Mean Platelet Volume 9.7 fL (9.4-12.4); Monocytes Absolute Auto 0.6 X10*3/uL (0.1-1.2); Monocytes Percent Auto 9.9 % (2-11); Neutrophils Percent Auto 47.6 % (45-73); Platelet Count 309 X10*3/uL (160-400); Red Blood Count 5.42 X10*6/uL (4.60-5.80); Red Cell Distribution Width 13.8 % (11.0-16.0); White Blood Count 6.3 X10*3/uL (4.8-10.8)
[2024-10-02 14:56] LABS: Alanine Aminotransferase 122 U/L (0-40); Albumin Level 4.5 g/dL (3.5-5.0); Alkaline Phosphatase 73 U/L (39-117); Anion Gap 11 (12-20); Aspartate Amino Transferase 56 U/L (5-37); Bilirubin Total 0.9 mg/dL (0.0-1.0); Blood Urea Nitrogen 9 mg/dL (9-16); Calcium 9.3 mg/dL (8.4-10.2); Carbon Dioxide 27 mmol/L (22-29); Chloride 107 mmol/L (96-108); Cholesterol 229 mg/dL (<200); Estimated Glomerular Filt Rate > 60; Glucose Random 77 mg/dL (60-115); HDL Cholesterol 38 mg/dL (>40); LDL Cholesterol Calculated 133 mg/dL (<100); Potassium 3.4 mmol/L (3.3-5.1); Sodium 142 mmol/L (135-145); Total Protein 7.9 g/dL (6.5-8.0); Triglycerides 294 mg/dL (<150)
[2024-10-02 21:21] LABS: Reflex LDLD? No
[2024-10-03 03:17] LABS: Syphilis Screen Nonreactive (Nonreactive)
[2024-10-03 03:44] LABS: HBS Num1 3.13 mIU/mL (0-7.99); HBc Num1 0.07 S/CO (0.00-0.79); HBsAGNum1 0.38 S/CO (0.00-0.99); Hepatitis B Core Antibody Nonreactive (Nonreactive); Hepatitis B Surface Antigen Negative (Negative); ~HepC Num1 0.12 S/CO (0.00-0.79); ~Hepatitis B Surface Antibody NONREACTIVE (Nonreactive); ~Hepatitis C Antibody Nonreactive (Nonreactive)
[2024-10-03 05:20] LABS: CT PCR NOT DETECTED (Not Detect.); NG PCR NOT DETECTED (Not Detect.)
[2024-10-05 19:19] LABS: TS Negative Control Passed; TS Panel A 5; TS Panel B 10; TS Positive Control Passed; TSpotTB Positive (Negative)
[2024-10-06 14:53] LABS: HIV RNA PCR Qn Copies 114000 copies/mL (NOT DETECTED); HIV RNA PCR Qn Log Copies 5.06 (NOT DETECTED)
[2024-10-09 12:18] LABS: Absolute CD3 Count 1928 cells/uL (840-3060); Absolute CD4 Count 687 cells/uL (490-1740); Absolute CD8 Count 1152 cells/uL (180-1170); Absolute Lymphocytes 2129 cells/uL (850-3900); Percent CD3 Cells 91 % (57-85); Percent CD4 Cells 32 % (30-61); Percent CD8 Cells 54 % (12-42)
== END 2024-10-02 11:36 | disposition home or self-care (01) ==
LOC: CF 11:35
PROVIDERS: Visit Provider Internal Medicine
DX: B20 Human immunodeficiency virus [HIV] disease (principal)
CPT/HCPCS: 36415; 80053; 80061; 85025; 86359; 86360; 86481; 86704; 86706; 86780; 86803; 87340; 87491; 87536; 87591

== ENCOUNTER 2025-03-09 08:19 | Outpatient (REF) | payer MEDICAID, SELFPAY ==
--- OUTSIDE RECORDS SUMMARY | 2025-03-09 08:55 | XMS_ITS | Clinical Summary ---
Author Organization [facility] Address [facility] [place] [address] Care Team Providers Care Spinning Machine Tender Name Role Phone Jill Echavarria MD Primary Care Provider [phone] Allergies No known active allergies Medications No known medications Active Problems No known active problems Social History Tobacco Use Types Packs/Day Years Used Date Smoking Tobacco: Former Sex and Gender Information Value Date Recorded Sex Assigned at Not on file Legal Sex Male 4:08 PM EDT Gender Identity Not on file Sexual Orientation Not on file Plan of Treatment Health Maintenance Due Date Last Done Comments HIV screen 2011 Hepatitis C Screening 2011 Hepatitis B vaccine (0-59 yrs) and Risk (1) 2012 Tetanus/Diphtheria/Pertussis Vaccines (1 - Tdap) 06/18 Covid-19 Vaccine (1 - season) 2025 Influenza (Flu) vaccine (1 o f 1 - Influenza standard series) 03/08/2025 Care Teams Spinning Machine Tender Relationship Specialty Start Date End Date Jill Echavarria MD [address] [place] [address] PCP - General Family Medicine 03/15/20
[2025-03-09 11:05] LABS: MANUAL DIFF FLAG NO
[2025-03-09 11:15] LABS: Hematocrit 44.4 % (42.0-52.0); Hemoglobin 15.3 g/dl (14.0-18.0); Imm Gran Abs Auto 0.09 X10*3/uL (0.00-0.03); Imm Gran Pct Auto 1.4 % (0.0-0.4); Lymphocytes Absolute Auto 3.3 X10*3/uL (1.2-4.9); Mean Corpuscular HGB Conc 34.5 g/dl (31.0-36.0); Mean Corpuscular Hemoglobin 29.5 pg (27.0-33.0); Mean Corpuscular Volume 85.7 fL (80.0-98.0); NRBC Abs Auto 0.000 X10*3/uL (0.0-0.012); NRBC Pct Auto 0.0 /100WBC (0.0-0.2); Platelet Count 320 X10*3/uL (160-400); Red Blood Count 5.18 X10*6/uL (4.60-5.80); White Blood Count 6.5 X10*3/uL (4.8-10.8)
[2025-03-09 12:56] LABS: Alanine Aminotransferase 84 U/L (0-40); Albumin Level 4.7 g/dL (3.5-5.0); Alkaline Phosphatase 73 U/L (39-117); Anion Gap 15 (12-20); Aspartate Amino Transferase 54 U/L (5-37); Blood Urea Nitrogen 10 mg/dL (9-16); Calcium 8.8 mg/dL (8.4-10.2); Carbon Dioxide 26 mmol/L (22-29); Chloride 107 mmol/L (96-108); Estimated Glomerular Filt Rate > 60; Potassium 3.7 mmol/L (3.3-5.1); Sodium 144 mmol/L (135-145); Total Protein 7.9 g/dL (6.5-8.0)
[2025-03-10 16:38] LABS: HIV RNA PCR Qn Copies 161000 copies/mL (NOT DETECTED); HIV RNA PCR Qn Log Copies 5.21 (NOT DETECTED)
[2025-03-11 21:19] LABS: TS Negative Control Passed; TS Panel A 0; TS Panel B 0; TS Positive Control Passed; TSpotTB Negative (Negative)
[2025-03-12 17:28] LABS: Absolute CD3 Count 3256 cells/uL (840-3060); Absolute CD8 Count 2233 cells/uL (180-1170); Percent CD3 Cells 90 % (57-85); Percent CD8 Cells 62 % (12-42)
== END 2025-03-09 08:20 | disposition home or self-care (01) ==
LOC: HO.HHCL 08:19
PROVIDERS: Visit Provider Student in an Organized Health Care Education/Training Program
DX: B20 Human immunodeficiency virus [HIV] disease (principal)
CPT/HCPCS: 36415; 80053; 85025; 86359; 86360; 86481; 87536

== ENCOUNTER 2025-03-15 13:02 | Outpatient (REF) | payer MEDICAID, SELFPAY ==
--- OUTSIDE RECORDS SUMMARY | 2025-03-15 15:14 | XMS_ITS | Clinical Summary ---
Author Organization [facility] Address [facility] [place] [address] Care Team Providers Care Dielectric Embossing Machine Operator Name Role Phone Jill Echavarria MD Primary Care Provider [phone] Allergies No known active allergies Medications No [...] - Influenza standard series) 03/08/2025 Care Teams Dielectric Embossing Machine Operator Relationship Specialty Start Date End Date Jill Echavarria MD [address] [place] [address] PCP - General Family Medicine 03/15/20
[2025-03-16 03:30] LABS: Syphilis Screen Nonreactive (Nonreactive)
[2025-03-16 04:28] LABS: HBS Num1 2.55 mIU/mL (0-7.99); HBc Num1 0.05 S/CO (0.00-0.79); HBsAGNum1 0.42 S/CO (0.00-0.99); Hepatitis B Surface Antigen Negative (Negative); ~HepC Num1 0.08 S/CO (0.00-0.79); ~Hepatitis B Surface Antibody NONREACTIVE (Nonreactive); ~Hepatitis C Antibody Nonreactive (Nonreactive)
[2025-03-16 20:34] LABS: C. Trachomatis RNA TMA, Throat NOT DETECTED (NOT DETECTED); C.Trachomatis RNA TMA, Rectal NOT DETECTED (NOT DETECTED); N. gonorrhoeae RNA TMA, Throat NOT DETECTED (NOT DETECTED); N.Gonorrhoeae RNA TMA, Rectal NOT DETECTED (NOT DETECTED)
[2025-03-19 08:18] LABS: ~Hepatitis A Antibody IgG 1.77 S/CO (0.00-0.99)
[2025-03-23 19:14] LABS: Date Viral Load Collected NG; Dolutegravir Resistance NOT PREDICTED; HIV-1 Bictegravir Resistance NOT PREDICTED; HIV-1 Cabotegravir Resistance NOT PREDICTED; HIV-1 Elvitegravir Resistance NOT PREDICTED; Raltegravir Resistance NOT PREDICTED; Value of Last HIV Viral Load NG copies/mL
== END 2025-03-15 13:03 | disposition home or self-care (01) ==
LOC: HO.HHCL 13:02
PROVIDERS: PCP Student in an Organized Health Care Education/Training Program; Visit Provider Student in an Organized Health Care Education/Training Program
DX: Z11.59 Encounter for screening for other viral diseases (principal); Z11.3 Encounter for screening for infections with a predominantly sexual mode of transmission; Z11.8 Encounter for screening for other infectious and parasitic diseases; Z21 Asymptomatic human immunodeficiency virus [HIV] infection status
CPT/HCPCS: 36415; 86704; 86706; 86708; 86780; 86803; 87340; 87491; 87591; 87900; 87901; 87906

== ENCOUNTER 2025-04-17 10:39 | Outpatient (REF) | payer MEDICAID, SELFPAY ==
--- OUTSIDE RECORDS SUMMARY | 2025-04-17 10:42 | XMS_ITS | Clinical Summary ---
Author Organization [facility] Address [facility] [place] [address] Care Team Providers Care Machine Hose Cutter Name Role Phone Jill Echavarria MD Primary Care Provider [phone] Allergies No known active allergies Medications No [...] - Influenza standard series) 03/08/2025 Care Teams Machine Hose Cutter Relationship Specialty Start Date End Date Jill Echavarria MD [address] [place] [address] PCP - General Family Medicine 03/15/20
[2025-04-17 10:50] LABS: MANUAL DIFF FLAG NO
[2025-04-17 11:05] LABS: Hematocrit 47.6 % (42.0-52.0); Hemoglobin 15.8 g/dl (14.0-18.0); Imm Gran Abs Auto 0.02 X10*3/uL (0.00-0.03); Imm Gran Pct Auto 0.3 % (0.0-0.4); Lymphocytes Absolute Auto 4.2 X10*3/uL (1.2-4.9); Mean Corpuscular HGB Conc 33.2 g/dl (31.0-36.0); Mean Corpuscular Hemoglobin 28.8 pg (27.0-33.0); Mean Corpuscular Volume 86.9 fL (80.0-98.0); NRBC Abs Auto 0.000 X10*3/uL (0.0-0.012); NRBC Pct Auto 0.0 /100WBC (0.0-0.2); Platelet Count 352 X10*3/uL (160-400); Red Blood Count 5.48 X10*6/uL (4.60-5.80); White Blood Count 7.8 X10*3/uL (4.8-10.8)
[2025-04-17 12:17] LABS: Alanine Aminotransferase 82 U/L (0-40); Albumin Level 4.8 g/dL (3.5-5.0); Alkaline Phosphatase 75 U/L (39-117); Anion Gap 11 (12-20); Aspartate Amino Transferase 54 U/L (5-37); Blood Urea Nitrogen 12 mg/dL (9-16); Calcium 9.0 mg/dL (8.4-10.2); Carbon Dioxide 29 mmol/L (22-29); Chloride 106 mmol/L (96-108); Cholesterol 205 mg/dL (<200); Estimated Glomerular Filt Rate > 60; HDL Cholesterol 32 mg/dL (>40); Potassium 3.3 mmol/L (3.3-5.1); Sodium 143 mmol/L (135-145); Total Protein 7.9 g/dL (6.5-8.0); Triglycerides 329 mg/dL (<150)
[2025-04-17 12:28] LABS: Reflex LDLD? No
== END 2025-04-17 10:40 | disposition home or self-care (01) ==
LOC: HO.LAB 10:39
PROVIDERS: PCP Student in an Organized Health Care Education/Training Program; Visit Provider Student in an Organized Health Care Education/Training Program
DX: Z21 Asymptomatic human immunodeficiency virus [HIV] infection status (principal)
CPT/HCPCS: 36415; 80053; 80061; 82306; 83036; 84443; 85025

== ENCOUNTER 2025-04-19 11:15 | Outpatient (REF) | payer MEDICAID, SELFPAY ==
--- OUTSIDE RECORDS SUMMARY | 2025-04-19 11:20 | XMS_ITS | Clinical Summary ---
Author Organization [facility] Address [facility] [address] Care Team Providers Care Anesthesiologist Assistant Name Role Phone Jill Echavarria MD Primary Care Provider [phone] Allergies No known active allergies Medications No [...] - Influenza standard series) 03/08/2025 Care Teams Anesthesiologist Assistant Relationship Specialty Start Date End Date Jill Echavarria MD [address] [place] [address] PCP - General Family Medicine 03/15/20
[2025-04-20 09:23] LABS: Rubeola IgG (Measles) >300.00 AU/mL
[2025-04-20 21:59] LABS: HIV RNA PCR Qn Copies 69 copies/mL (NOT DETECTED); HIV RNA PCR Qn Log Copies 1.84 (NOT DETECTED)
[2025-04-21 22:33] LABS: TS Negative Control Passed; TS Panel A 2; TS Panel B 0; TS Positive Control Passed; TSpotTB Negative (Negative)
[2025-04-24 16:29] LABS: Glucose-6-Phosphate Dehydrogen 19.8 U/g Hgb (7.0-20.5)
== END 2025-04-19 11:16 | disposition home or self-care (01) ==
LOC: HO.HHCL 11:15
PROVIDERS: Internal Medicine; PCP Student in an Organized Health Care Education/Training Program; Visit Provider Student in an Organized Health Care Education/Training Program
DX: Z01.84 Encounter for antibody response examination (principal); Z11.1 Encounter for screening for respiratory tuberculosis; Z21 Asymptomatic human immunodeficiency virus [HIV] infection status
CPT/HCPCS: 36415; 82955; 86481; 86735; 86762; 86765; 86787; 87536